=== PATIENT | female | born 1980 | race Caucasian/White ===

== ENCOUNTER 2017-08-20 05:19 | Day surgery (SDC) | payer OTHER ==
[2017-08-19 15:35] LABS: BASOPHILS 0.4 % (0-2); EOSINOPHILS 3.2 % (0-7); HEMOGLOBIN 11.7 g/dL (12-16); IMMATURE GRANULOCYTES 0.3 % (0-5); LYMPHOCYTES 32.5 % (15-50); MCH 29.3 pg (26.0-34.0); MCHC 32.5 g/dL (31.0-37.0); MCV 90.2 fL (80.0-100.0); MEAN PLATELET VOLUME 11.2 fL (7.4-10.4); MONOCYTES 9.7 % (2-11); NEUTROPHILS 53.9 % (40-80); PLATELET COUNT 216 10x3/uL (130-400); RBC 3.99 10x6/uL (4.00-5.40); WBC 7.4 10x3/uL (4.8-10.8)
[~2017-08-20] VITALS: Ht 144.8 cm; Wt 67.1 kg
--- NOTE | ~2017-08-20 | OP ---
PATIENT NAME: ELLIE MOREL MEDICAL RECORD: [id number] :78 LOCATION:D[facility] ADMISSION DATE: SURGEON: IRVING MOCTEZUMA MD DATE OF OPERATION: 08/20/2017 PREOPERATIVE DIAGNOSIS: High-grade cervical dysplasia. POSTOPERATIVE DIAGNOSIS: High-grade cervical dysplasia. PROCEDURE: Loop electrosurgical excision procedure. SURGEON: Irving Moctezuma MD ANESTHESIA: General by LMA. INTRAVENOUS FLUIDS: Per anesthesia record. SPECIMENS: Included a cervical cone biopsy. COMPLICATIONS: None apparent. FINDINGS: 1. Grossly normal-appearing external genitalia. 2. Grossly normal-appearing cervix. DESCRIPTION OF PROCEDURE: The patient was taken to the operating room where general anesthesia was achieved without difficulty. The patient was then prepped and draped in normal sterile fashion in the dorsal lithotomy position in the [facility]. Following prep and drape, the bladder was drained of approximately 50 mL of clear yellow urine. At this point, an insulated speculum was placed into the vagina. The cervix was identified. A 1 x 1 cm loop electrode was then used to remove a cone biopsy with minimal bleeding following removal of the specimen. The surgical site was then cauterized using the ball tip of the Bovie with good hemostasis noted. Ferrous subsulfate was placed on the surgical site and again good hemostasis was noted upon removal of the speculum. The patient tolerated procedure well and was transferred to postanesthesia recovery stable without incident. TRANSINT:[id number] Voice Confirmation ID: [id number] DOCUMENT ID: [id number] IRVING MOCTEZUMA MD at 1034 CC: [id number] DICTATION DATE: 08/29/17 0708 [employer] FINISHER: 08/29/17 1153 [facility] 08/20/17 [facility] [address] [id number]
[2017-08-20 06:33] VITALS: BP 145/100; Ht 144.8 cm; Wt 67.1 kg
[2017-08-20 06:55] LABS: HCG URINE NEGATIVE (NEGATIVE)
[2017-08-20 07:12] LABS: HCG URINE NEGATIVE (NEGATIVE)
== END 2017-08-20 09:30 | disposition home or self-care (01) ==
LOC: D.OPS 05:19 → D.PAN 07:30 → D.OPS 08:30
PROVIDERS: Obstetrics & Gynecology
DX: N87.9 Dysplasia of cervix uteri, unspecified (principal)